=== PATIENT | female | born 1990 | race Caucasian/White ===

== ENCOUNTER 2017-05-09 22:22 | Emergency (ER) | payer BC ==
[2017-05-09 22:45] VITALS: BP 133/81; PULSE 106; RESP 22; TEMP 97.9
[2017-05-09] MEDS ORDERED: LORazepam 1 MG TAB PO STA (23:02)
--- NOTE | 2017-05-09 23:04 | ED ---
General Adult HPI - General Chief complaint: Anxiety Stated complaint: Anxiety Time Seen by Provider: 05/09/17 22:47 Source: patient, family, RN notes reviewed Mode of arrival: ambulatory Limitations: no limitations - History of Present Illness Initial comments: Patient is a pleasant 26-year-old female presenting to the emergency department with anxiety. Symptoms have been worse over the past week or so. Patient does normally take Paxil. Patient has had racing thoughts. Patient has not been sleeping well. Patient feels anxious. No suicidal thoughts. - Related Data Home Medications Medication Instructions Recorded Confirmed Cholecalciferol (Vitamin D3) 2,000 unit PO DAILY 05/09/17 05/09/17 [Vitamin D3] FLUoxetine HCL [PROzac] 20 mg PO DAILY 05/09/17 05/09/17 Ferrous Sulfate [Feosol] 325 mg PO DAILY 05/09/17 05/09/17 L.acidoph,Paracasei, B.lactis 1 cap PO DAILY 05/09/17 05/09/17 [Probiotic] Multivitamins, Thera [Multivitamin 1 tab PO DAILY 05/09/17 05/09/17 (formulary)] Omeprazole Magnesium [PriLOSEC OTC] 20 mg PO DAILY 05/09/17 05/09/17 Vitamin C/Biotin [Hair, Skin and 1 tab PO DAILY 05/09/17 05/09/17 Nails] Previous Rx's Medication Instructions Recorded LORazepam [Ativan] 1 mg PO TID PRN #8 tab 05/10/17 Allergies Allergy/AdvReac Type Severity Reaction Status Date / Time lactose Allergy Nausea & Verified 05/09/17 22:55 Vomiting & Diarrhea Review of Systems ROS Statement: Those systems with pertinent positive or pertinent negative responses have been documented in the HPI. ROS Other: All systems not noted in ROS Statement are negative. Constitutional: Denies: fever Eyes: Denies: eye pain ENT: Denies: ear pain Respiratory: Denies: cough Cardiovascular: Denies: chest pain Endocrine: Denies: fatigue Gastrointestinal: Denies: abdominal pain Genitourinary: Denies: dysuria Musculoskeletal: Denies: back pain Skin: Denies: rash Neurological: Denies: weakness Psychiatric: Reports: anxiety. Denies: suicidal thoughts Past Medical History Additional Past Medical History / Comment(s): Hiatal hernia History of Any Multi-Drug Resistant Organisms: None Reported Past Surgical History: No Surgical Hx Reported Past Psychological History: Anxiety, Depression, Panic Disorder Smoking Status: Never smoker Past Alcohol Use History: Occasional Past Drug Use History: None Reported General Exam Limitations: no limitations General appearance: alert, in no apparent distress Head exam: Present: atraumatic Eye exam: Present: normal appearance, PERRL ENT exam: Present: normal oropharynx Neck exam: Present: normal inspection Respiratory exam: Present: normal lung sounds bilaterally Cardiovascular Exam: Present: regular rate, normal rhythm GI/Abdominal exam: Present: soft. Absent: tenderness Extremities exam: Present: normal inspection Neurological exam: Present: alert Psychiatric exam: Present: anxious Expanded Focused psych exam: Present: flight of ideas Skin exam: Present: normal color Course Vital Signs 05/09/17 22:42 Temperature 97.9 F Pulse Rate 106 H Respiratory 22 Rate Blood Pressure 133/81 O2 Sat by Pulse 100 Oximetry - Reevaluation(s) Reevaluation #1: 05/10/17 00:19 Patient reevaluated and improved with Ativan. Patient is comfortable at this time and comfortable with discharge. Patient agrees she does not need psychiatric evaluation for admission at this point. Medical Decision Making - Lab Data Lab Results 05/09/17 Range/Units 23:30 POC Glucose (mg/dL) 106 H (75-99) mg/dL POC Glu Analog Design Engineer ID Barb Donato Disposition Clinical Impression: Acute anxiety Disposition: HOME SELF-CARE Condition: Stable Instructions: Generalized Anxiety Disorder (ED) Additional Instructions: Please follow-up with primary care physician and psychiatrist in the next couple days for recheck. Return for not functioning well at home, thoughts of self-harm, worsening symptoms or any other concerns. Prescriptions: LORazepam [Ativan] 1 mg PO TID PRN #8 tab PRN Reason: Anxiety Referrals: Theo Villalta MD [STAFF PHYSICIAN] - 1-2 days Marcelle Watts MD [Medical Doctor] - 1-2 days Time of Disposition: 00:20
[2017-05-10 00:10] LABS: Glucose,Whole Blood 106 mg/dL (75-99)
== END 2017-05-10 00:27 | disposition home or self-care (01) ==
LOC: EC 22:22
DX: F41.9 Anxiety disorder, unspecified (principal); F32.9 Major depressive disorder, single episode, unspecified; F41.0 Panic disorder [episodic paroxysmal anxiety]; Z79.899 Other long term (current) drug therapy; Z91.011 Allergy to milk products
CPT/HCPCS: 36415; 99283

== ENCOUNTER → 2019-08-11 | Outpatient (CLI) | payer BC ==
[2019-08-11 12:56] LABS: Basophils % (A) 1 %; Eosinophils # (A) 0.2 k/uL (0-0.7); Eosinophils % (A) 3 %; HCT 35.1 % (34.0-46.0); HGB 10.8 gm/dL (11.4-16.0); Lymphocytes # (A) 2.1 k/uL (1.0-4.8); Lymphocytes % (A) 29 %; MCH 26.5 pg (25.0-35.0); MCHC 30.8 g/dL (31.0-37.0); MCV 86.2 fL (80.0-100.0); Mean Platelet Volume 6.5; Monocytes # (A) 0.4 k/uL (0-1.0); Monocytes % (A) 6 %; Neutrophils # (A) 4.4 k/uL (1.3-7.7); Neutrophils % (A) 60 %; Platelet Count 339 k/uL (150-450); RBC 4.07 m/uL (3.80-5.40); RDW 13.7 % (11.5-15.5); WBC 7.4 k/uL (3.8-10.6)
== END | disposition home or self-care (01) ==
LOC: LABPAT 12:04
PROVIDERS: ATTEND Obstetrics & Gynecology Obstetrics
DX: Z01.818 Encounter for other preprocedural examination (principal)
CPT/HCPCS: 36415; 85025

== ENCOUNTER → 2019-08-14 | Outpatient (CLI) | payer BC | END | disposition home or self-care (01) | LOC: LABWHC1 10:29 | PROVIDERS: ATTEND Obstetrics & Gynecology Obstetrics | DX: Z11.59 Encounter for screening for other viral diseases (principal) | CPT/HCPCS: 87635 ==

== ENCOUNTER 2019-08-18 07:22 | Day surgery (SDC) | payer BC ==
--- NOTE | 2019-08-13 09:57 | P.HPOB ---
History of Present Illness H&P Date: 08/13/19 Chief Complaint: undesires fertility, family planning. This is a 29 yo G0 that presents for tubal ligation consult. she struggles with mood issues and feels that she shouldnt and doesnt want to have children. she was counseled on medical options for contraception and she has declined these options as she would like something permanent. menses are noted to be regular q 28-30 days with a moderate to heavy flow lasting 5-6 days. she notes some dysmenorrhea with her menses as well. Review of Systems Constitutional: Denies chills, Denies fatigue, Denies fever Ears, nose, mouth and throat: Denies headache Respiratory: Denies dyspnea Gastrointestinal: Denies constipation, Denies diarrhea, Denies nausea, Denies vomiting Genitourinary: Denies Menstruation: Reports menses 1-7 days, Reports period heavy Psychiatric: Reports anxiety, Reports depression Past Medical History Additional Past Medical History / Comment(s): Hiatal hernia History of Any Multi-Drug Resistant Organisms: None Reported Past Surgical History: No Surgical Hx Reported Past Psychological History: Anxiety, Depression, Panic Disorder Smoking Status: Never smoker Past Alcohol Use History: Occasional Past Drug Use History: None Reported Medications and Allergies Home Medications Medication Instructions Recorded Confirmed Type Cholecalciferol (Vitamin D3) 2,000 unit PO DAILY 05/09/17 05/09/17 History [Vitamin D3] FLUoxetine HCL [PROzac] 20 mg PO DAILY 05/09/17 05/09/17 History Ferrous Sulfate [Feosol] 325 mg PO DAILY 05/09/17 05/09/17 History L.acidoph,Paracasei, B.lactis 1 cap PO DAILY 05/09/17 05/09/17 History [Probiotic] Multivitamins, Thera [Multivitamin 1 tab PO DAILY 05/09/17 05/09/17 History (formulary)] Omeprazole Magnesium [PriLOSEC OTC] 20 mg PO DAILY 05/09/17 05/09/17 History Vitamin C/Biotin [Hair, Skin and 1 tab PO DAILY 05/09/17 05/09/17 History Nails] LORazepam [Ativan] 1 mg PO TID PRN #8 tab 05/10/17 Rx Allergies Allergy/AdvReac Type Severity Reaction Status Date / Time lactose Allergy Nausea & Verified 05/09/17 22:55 Vomiting & Diarrhea Exam Osteopathic Statement: *. No significant issues noted on an osteopathic structural exam other than those noted in the History and Physical/Consult. breathing is noted to be non labored and heart has a RRR - OBG Physical Exam Abdomen: non tneder and soft to palpation Abdomen: bowel sounds normal Vagina: normal appearing no masses noted. Cervix: no lesion, no ulceration Uterus: normal size Adnexa: both: normal Anus/Rectum: normal perianal skin Assessment and Plan (1) Family planning Status: Acute Code(s): Z30.09 - ENCOUNTER FOR OTH GENERAL CNSL AND ADVICE ON CONTRACEPTION SNOMED Code(s): 987680287 Plan: patient elects permanent sterilization with LTL> infomration given to pt and risks are reviewed. she is counseled on risks of ingfection bleeding damage to bladder bowel or ureteric injury. she is counseled on tubal failure rate and that is she misses a menses she should be seen to discuss. she states understanding and wishes to proceed with permanent sterilization.
[2019-08-13 14:42] VITALS: BMI 30.9
[~2019-08-18 07:22] MED LIST: DEXAMETHASONE SOD PHOSPHATE 10 MG/ML 1 ML VIAL IV ONE; LACTATED RINGERS 1,000 ML IV SCH; LIDOCAINE 1% (10MG/ML) FOR IV START INTRADERMA PRN; MIDAZOLAM 2 MG/2 ML VIAL IV PRN; ONDANSETRON 4 MG/2 ML VIAL IVP ONE; Pre Op ABX Message 1 EACH MISC MISCELLANE ONE; fentaNYL (PF) 50 MCG/ML 2 ML AMP IV PRN
[2019-08-18] MEDS ORDERED: KETAMINE 10 MG/ML 20 ML VIAL ONE (08:38)
[2019-08-18] MEDS ORDERED: fentaNYL (PF) 50 MCG/ML 2 ML AMP ONE (08:38)
[2019-08-18] MEDS ORDERED: ROCURONIUM BROMIDE 10 MG/ML 5 ML VIAL IV ONE (08:38)
[2019-08-18] MEDS ORDERED: PROPOFOL 10 MG/ML 20 ML VIAL IV ONE (08:38)
[2019-08-18] MEDS ORDERED: MIDAZOLAM 2 MG/2 ML VIAL ONE (08:38)
[2019-08-18] MEDS ORDERED: NEOSTIGMINE 1 MG/ML 10 ML VIAL ONE (08:38)
[2019-08-18] MEDS ORDERED: GLYCOPYRROLATE 0.2 MG/ML 2 ML VIAL ONE (08:38)
[2019-08-18] MEDS ORDERED: SUCCINYLCHOLINE CHLORIDE 100 MG/5 ML SYR IV ONE (08:38)
[2019-08-18] MEDS ORDERED: LIDOCAINE 1% INJ 10MG/ML (20 ML MDV) ONE (08:38)
[2019-08-18] MEDS ORDERED: BUPIVACAINE (PF) 0.25% 30 ML VIAL SQ ONE (09:01)
--- NOTE | 2019-08-18 09:18 | P.OP ---
Date of Procedure: 08/18/19 Preoperative Diagnosis: Undesired fertility Postoperative Diagnosis: Same Procedure(s) Performed: Laparoscopic tubal ligation with Filshie clips Anesthesia: GETA Surgeon: Madelaine Lowry Estimated Blood Loss (ml): 2 IV fluids (ml): 350 Urine output (ml): 100 Pathology: none sent Condition: stable Disposition: PACU Indications for Procedure: Patient request for permanent sterilization Operative Findings: Normal pelvic anatomy Description of Procedure: Patient was seen in the preoperative area and informed consent was obtained this is permanent sterilization. Patient was taken back to the operating suite were general anesthesia was obtained without difficulty by the anesthesia department. She was prepped and draped in normal sterile fashion in dorsal lithotomy position. A weightedvaginal vault intralipids the cervix was visualized and grasped with a single-tooth macula. An acorn uterine manipulator was advanced into the cervix as a means to manipulate the uterus throughout the procedure. Prior to this a latex free catheter is used to drain the bladder of clear yellow urine. At this time attention was then turned to the patient's abdomen where all incision is made and the various fold. Through this incision the Veress needles placed. Once the Veress needle is deemed to be in the proper position with a drop of CO2 pressure with insufflation of CO2 gas CO2 insufflation was allowed to occur. 3 L of gas were used to obtain pneumoperitoneum. At this time a 5 mm trocar and sleeve with the laparoscope was in place is placed through the skin incision and toward the pneumoperitoneum. The above-noted findings are visualized. An additional port site is placed in the right mid quadrant this is an 8 mm trocar and placed under direct visualization. The Filshie clip applicator is then advanced into the abdomen and clips are applied and bilateral fallopian tubes. Occlusion is appreciated. At this time all instruments are removed from the patient's abdomen and the skin incisions are closed with 4-0 Vicryl in a subarticular fashion. Steri-Strips and sterile dressings are applied as needed. All counts are correct 2 Patient tolerated procedure well was taken the recovery room awake in stable condition.
[2019-08-18 09:28] VITALS: RESP 16; TEMP 97.1
[2019-08-18] MEDS ORDERED: HYDROmorphone 1 MG/ML 1 ML SYRINGE IVP ONE ×2 (09:30→09:35)
[2019-08-18 10:16] VITALS: BP 114/74; PULSE 69
== END 2019-08-18 10:31 | disposition home or self-care (01) ==
LOC: OR 07:22
PROVIDERS: ATTEND Obstetrics & Gynecology Obstetrics
DX: Z30.2 Encounter for sterilization (principal); F41.9 Anxiety disorder, unspecified; F32.9 Major depressive disorder, single episode, unspecified; F41.0 Panic disorder [episodic paroxysmal anxiety]; K44.9 Diaphragmatic hernia without obstruction or gangrene; Z79.899 Other long term (current) drug therapy; Z91.011 Allergy to milk products; Z91.040 Latex allergy status
CPT/HCPCS: 81025; 58671; J2250; J1100; J2710; J2405; J2001; J3010; J1170; J0330; J2704

== ENCOUNTER → 2022-08-10 | Outpatient (CLI) | payer BC ==
[2022-08-11 02:35] LABS: Homocysteine 9.52 umol/L (4.00-14.00)
[2022-08-11 02:48] LABS: C Reactive Protein <0.30 mg/dL (0.00-0.80)
== END | disposition home or self-care (01) ==
LOC: LABWHC1 12:22
PROVIDERS: ATTEND Family Medicine
DX: F34.1 Dysthymic disorder (principal); R53.83 Other fatigue
CPT/HCPCS: 36415; 82306; 82533; 82607; 82627; 82746; 83090; 86001; 86140

== ENCOUNTER → 2023-04-25 | Outpatient (CLI) | payer BC ==
[2023-04-25 15:14] LABS: HCT 38.5 % (37.2-46.3); HGB 12.9 g/dL (12.0-15.0); MCH 29.3 pg (27.0-32.0); MCHC 33.5 g/dL (32.0-37.0); MCV 87.5 FL (80.0-97.0); Mean Platelet Volume 8.2 FL (9.5-12.2); NRBC Per 100 WBC 0 X 10*3/uL (0.00-0.01); Platelet Count 326 X 10*3/uL (140-440); RDW 11.9 % (11.5-14.5); WBC 6.47 X 10*3/uL (4.50-10.00)
== END | disposition home or self-care (01) ==
LOC: LABWHC1 11:50
PROVIDERS: ATTEND Family Medicine
DX: E66.09 Other obesity due to excess calories (principal); F41.1 Generalized anxiety disorder; R73.01 Impaired fasting glucose
CPT/HCPCS: 36415; 83036; 85027